=== PATIENT | male | born 1970 | race Caucasian/White ===

== ENCOUNTER 2019-07-12 08:51 | Emergency (ER) | payer MEDICAID ==
--- NOTE | 2019-07-12 09:41 | ER Document Report ---
ED Medical Screen (RME) - General Chief Complaint: Eye Problem Stated Complaint: RIGHT EYE IRRITATION/REDNESS Time Seen by Provider: 07/12/19 09:29 TRAVEL OUTSIDE OF THE [place] IN LAST 30 DAYS: No - HPI Notes: 07/12/19 09:58 49-year-old male to the emergency department with complaints of right eyelid swelling and pain that has been getting progressively worse for the past 3 days. States he was playing with a friend's child the day before his symptoms started and the child was running a track around his eye. He states he woke up the next day with it matted shut with some crusting discharge. He states however it is gotten progressively worse very tender into the tear duct into the upper lid. Denies any fevers or chills. Denies any cysts significant pain with eye movement. He also has a noted elevated blood pressure today. He states that he used to be on 2 medicines but he has not been on them for several months now since he moved to [place]. He cannot recall the names. He denies any focal neurological deficits, vision changes, headache, chest pain, shortness of breath I performed a brief medical screening exam on the patient. Given the swelling on his upper eyelid and into his tear duct questionable if this is progressing into a periorbital cellulitis versus a dacryocystitis. Will evaluate for orbital cellulitis as well by CT and also obtain lab work. Patient agrees with the plan. Patient to be further managed by main side provider. - Related Data Allergies/Adverse Reactions: codeine Allergy (Verified 07/12/19 09:24) Past Medical History - Social History Chew tobacco use (# tins/day): No Frequency of alcohol use: None Drug Abuse: None - Past Medical History Cardiac Medical History: Reports: Hx Hypertension - not on meds Physical Exam - Vital signs Vitals: Temp Pulse Resp BP Pulse Ox 98.7 F 88 16 207/99 H 97 07/12/19 08:56 07/12/19 08:56 07/12/19 08:56 07/12/19 08:56 07/12/19 08:56 Course - Vital Signs Vital signs: Temp Pulse Resp BP Pulse Ox 98.7 F 88 16 207/99 H 97 07/12/19 08:56 07/12/19 08:56 07/12/19 08:56 07/12/19 08:56 07/12/19 08:56
[2019-07-12 10:11] LABS: ABSOLUTE BASOPHILS # (AUTO) 0.1 10^3/uL (0.0-0.2); ABSOLUTE EOSINOPHILS # (AUTO) 0.2 10^3/uL (0.0-0.6); ABSOLUTE LYMPHOCYTES (AUTO) 2.4 10^3/uL (0.5-4.7); ABSOLUTE MONOCYTES (AUTO) 0.5 10^3/uL (0.1-1.4); ABSOLUTE NEUT (AUTO) 5.9 10^3/uL (1.7-8.2); BASOPHILS % (AUTO) 1.2 % (0-2); EOSINOPHILS % (AUTO) 2.2 % (0-6); HEMATOCRIT 45.2 % (37.9-51.0); HEMOGLOBIN 15.7 g/dL (13.5-17.0); LYMPHOCYTES % (AUTO) 25.8 % (13-45); MEAN CORPUSCULAR HEMOGLOBIN 29.2 pg (27.0-33.4); MEAN CORPUSCULAR HGB CONC 34.7 g/dL (32.0-36.0); MEAN CORPUSCULAR VOLUME 84 fl (80-97); MONOCYTES % (AUTO) 5.9 % (3-13); PLATELET COUNT 264 10^3/uL (150-450); RED BLOOD COUNT 5.36 10^6/uL (4.35-5.55); RED CELL DISTRIBUTION WIDTH 14.1 % (11.5-14.0); SEGMENTED NEUTROPHILS % (AUTO) 64.9 % (42-78); TOTAL CELLS COUNTED % (AUTO) 100 %; WHITE BLOOD COUNT 9.2 10^3/uL (4.0-10.5)
[2019-07-12 10:43] LABS: ANION GAP 9 (5-19); BLOOD UREA NITROGEN 11 mg/dL (7-20); CALCIUM 9.2 mg/dL (8.4-10.2); CARBON DIOXIDE 29 mmol/L (22-30); CHLORIDE 102 mmol/L (98-107); GLUCOSE 101 mg/dL (75-110); POTASSIUM 4.4 mmol/L (3.6-5.0)
--- NOTE | 2019-07-12 11:33 | RADIOLOGY REPORT (SQ) ---
EXAM DESCRIPTION: CT ORBIT/SELLA WITH COMPLETED DATE/TIME: 07/12/2019 11:02 am REASON FOR STUDY: eyelid swelling/tear duct eval orbital cellulitis COMPARISON: None. TECHNIQUE: Post contrast images through the orbits windowed for bone and soft tissue. Additional co kristen and sagittal reconstructed images reviewed. All images stored on PACS. All CT scanners at this facility use dose modulation, iterative reconstruction, and/or weight based d osing when appropriate to reduce radiation dose to as low as reasonably achievable (ALARA). [facility]: Dose Right [facility]: CareDose [facility]: Dose Right [facility]: Teradose 4D [facility]: Mixertech CONTRAST TYPE AND DOSE: contrast/concentration: Isovue 350.00 mg/ml; Total Contrast Delivered: 75.0 ml; Total Saline Delivered: 55.0 ml RENAL FUNCTION: GFR > 60. RADIATION DOSE: CT Rad equipment meets quality standard of care and radiation dose reduction techniq ues were employed. CTDIvol: 6.0 mGy. DLP: 93 mGy-cm. . LIMITATIONS: None. FINDINGS: FACIAL BONES: No fracture or bone lesion. ORBITS: Globes intact and symmetric bilaterally. Retro-orbital soft tissues also intact and symmetri c. Pronounced soft tissue swelling extends along the anterior superior aspect of the right orbit, pr eseptal cellulitis. No underlying radiopaque foreign body or abscess formation detected. PARANASAL SINUSES: Clear. No significant mucosal thickening, mass or fluid. SOFT TISSUES: No CT evidence of acute sinusitis. INFERIOR BRAIN: Limited view. No acute findings. OTHER: No other significant finding. IMPRESSION: 1. Right orbital preseptal cellulitis. Otherwise unremarkable CT of the orbits bilaterally. TECHNICAL DOCUMENTATION: JOB ID: [id number] Quality ID # [id number]: Final reports with documentation of one or more dose reduction techniques (e.g., Au tomated exposure control, adjustment of the mA and/or kV according to patient size, use of iterative reconstruction technique) 2010 [employer]- All Rights Reserved Reading location - IP/workstation name: [email or web address]
--- NOTE | 2019-07-12 15:02 | ER Document Report ---
ED Eye Complaint - General Chief Complaint: Eye Problem Stated Complaint: RIGHT EYE IRRITATION/REDNESS Time Seen by Provider: 07/12/19 09:29 Notes: Patient is a 49-year-old male who presents to the emergency department with a chief complaint of right eyelid redness and swelling. Patient reports his symptoms started a few days ago. Patient denies visual drainage or eye drainage. Patient reports occasionally the top of his eyelid which is red will itch. Patient denies fever, nausea, vomiting or diarrhea. Patient reports that he was playing with his friends small daughter the other day when 1 of her toys came in contact with his eyelid. He is unsure if this had bacteria on it or if this was what could be causing his symptoms and possible infection. Patient reports he does have a history of high blood pressure but is not currently take any medications. Patient denies headache or dizziness. TRAVEL OUTSIDE OF THE [place] IN LAST 30 DAYS: No - Related Data Allergies/Adverse Reactions: codeine Allergy (Verified 07/12/19 09:24) Past Medical History - General Information source: Patient - Social History Smoking Status: Current Every Day Smoker Chew tobacco use (# tins/day): No Frequency of alcohol use: None Drug Abuse: None Lives with: Family Family History: None Patient has suicidal ideation: No Patient has homicidal ideation: No - Past Medical History Cardiac Medical History: Reports: Hx Hypertension - not on meds Pulmonary Medical History: Reports: None EENT Medical History: Reports: None Neurological Medical History: Reports: None Endocrine Medical History: Reports: None Renal/ Medical History: Reports: None Malignancy Medical History: Reports None GI Medical History: Reports: None Musculoskeletal Medical History: Reports None Skin Medical History: Reports None Psychiatric Medical History: Reports: None Traumatic Medical History: Reports: None Infectious Medical History: Reports: None Review of Systems - Review of Systems Constitutional: No symptoms reported EENT: See HPI Cardiovascular: No symptoms reported Respiratory: No symptoms reported Gastrointestinal: No symptoms reported Genitourinary: No symptoms reported Male Genitourinary: No symptoms reported Musculoskeletal: No symptoms reported Skin: No symptoms reported Hematologic/Lymphatic: No symptoms reported Neurological/Psychological: No symptoms reported Physical Exam - Vital signs Vitals: Temp Pulse Resp BP Pulse Ox 98.7 F 88 16 207/99 H 97 07/12/19 08:56 07/12/19 08:56 07/12/19 08:56 07/12/19 08:56 07/12/19 08:56 Interpretation: Hypertensive - Notes Notes: GENERAL: Well-appearing, well-nourished and in no acute distress. HEAD: Atraumatic, normocephalic. EYES: Pupils equal round and reactive to light, extraocular movements intact, sclera anicteric, conjunctiva are normal. Patient does have erythema and mild swelling to right upper eyelid, eyelids are not swollen shut. The swelling and erythema do not extend into the cheek or forehead. This is localized to the right upper eyelid. No injection noted to eye, no drainage. ENT: Nares patent, oropharynx clear without exudates. Moist mucous membranes. NECK: Normal range of motion, supple without lymphadenopathy or JVD. LUNGS: Breath sounds clear to auscultation bilaterally and equal. No wheezes rales or rhonchi. HEART: Regular rate and rhythm without murmurs, rubs or gallops. ABDOMEN: Soft, nontender, normoactive bowel sounds. No guarding, no rebound. No masses appreciated. BACK: No cervical, thoracic, lumbar midline tenderness. No saddle anesthesia, normal distal neurovascular exam. GENITOURINARY: Deferred. EXTREMITIES: Normal range of motion, no pitting or edema. No clubbing or cyanosis. NEUROLOGICAL: Cranial nerves II through XII grossly intact. Normal speech, normal gait. PSYCH: Normal mood, normal affect. SKIN: Warm, Dry, normal turgor, no rashes or lesions noted. - HEENT Visual acuity- Right eye: 20/30-1 Visual acuity- Left eye: 20/30-0 Visual acuity- Both eyes: 20/30-0 Corrective lenses worn: No Course - Re-evaluation Re-evalutation: 07/12/[address] Ramos in regards to the patient's blood work and CT scan which did show preseptal orbital cellulitis without abscess. He does recommend the patient receiving IV Rocephin and IV vancomycin prior to discharge and placing the patient on Septra 2 tabs twice daily for 7 days, and to return to the emergency department tomorrow for reevaluation as his symptoms and diagnosis are serious and could get worse. Patient is sitting upright on chair and is visibly upset. Patient voiced concerned about significant wait time and states he cannot stay for IV antibiotics as he needs to pick his child up from school. Patient remains afebrile but does remain hypertensive. I did inform him that we would like to keep him to help bring down his blood pressure and to receive IV antibiotics. Patient states he cannot receive the IV antibiotics but will return tomorrow for reevaluation. I did inform the patient that without IV antibiotics the infection could potentially get worse to include infection that spreads into the eye, the blood, the brain and result in . Patient did sign a refusal of treatment for his IV antibiotics. I did reiterate the importance to return tomorrow for reevaluation. Patient was given first dose of Bactrim here in the emergency department and was prescribed oral antibiotics for 1 week as recommended by my attending MD. - Vital Signs Vital signs: Temp Pulse Resp BP Pulse Ox 98.2 F 80 20 207/107 H 96 07/12/19 15:21 07/12/19 15:21 07/12/19 15:21 07/12/19 15:21 07/12/19 15:21 - Laboratory Result Diagrams: 07/12/19 09:50 07/12/19 09:50 Laboratory results interpreted by me: 07/12/19 09:50 RDW 14.1 H - Diagnostic Test Radiology reviewed: Reports reviewed Radiology results interpreted by me: 07/12/19 15:[address] 07/12/19 09:39 IMPRESSION: 1. Right orbital preseptal cellulitis. Otherwise unremarkable CT of the orbits bilaterally. Discharge - Discharge Clinical Impression: Preseptal cellulitis of right upper eyelid Condition: Stable Disposition: HOME, SELF-CARE Additional Instructions: *Today you were seen in the emergency department for right eye redness. We did obtain a CAT scan which did show a preseptal cellulitis of the orbit around the eye. This is a very serious type of cellulitis. If not treated appropriately this could potentially get into your brain and you could . This could also spread to your blood or effect your eye. At this time your blood work was reassuring and did not show signs of infection. We did recommend a dose of IV antibiotics prior to discharge but unfortunately you had to leave. I will place you on oral antibiotics and given your first dose here in the emergency department. We would like you to return tomorrow for a reevaluation of your right eye infection. *It extremely important to have a follow-up and to return tomorrow. Throughout the night if you develop any visual changes, increased swelling around the eye, increased swelling to the face and redness, fever please return to the emergency department as this can infection can get worse rapidly. *Use warm compresses to the right eye, and anti-inflammatories such as ibuprofen. You may also take Tylenol. *PLEASE RETURN TO THE ER TOMORROW FOR A RE-EVALUATION. Cellulitis You have an infection of your skin and underlying soft tissues called cellulitis. This is due to bacteria, which can enter through any break in the skin, or even through an irritated hair follicle. Untreated, cellulitis will usually worsen. Antibiotics are required. Usually, warm packs or warm soaks, and elevation of the infected area are recommended. You should start getting better within 24 to 36 hours. Most infections respond quickly to the right medication. Follow-up care is important, however, to check for abscess (boil) formation, unsuspected foreign body, or resistant infection. If you develop fever, chills, or if the area of infection is becoming rapi dly more swollen or painful, call the doctor at once. Prescriptions: Sulfamethoxazole/Trimethoprim [Septra-Ds 800-160 mg Tablet] 2 tab PO BID 7 Days #28 tablet Forms: Return to Work
[2019-07-12] MEDS ORDERED: SULFAMETHOXAZOLE/TRIMETHOPRIM 800-160 MG TABLET PO ONE (15:14)
[2019-07-12 15:29] VITALS: BP 207/107
== END 2019-07-12 15:29 | disposition home or self-care (01) ==
LOC: ER 08:51
DX: L03.213 Periorbital cellulitis (principal); H57.9 Unspecified disorder of eye and adnexa; F17.200 Nicotine dependence, unspecified, uncomplicated; Z88.6 Allergy status to analgesic agent
CPT/HCPCS: 36415; 85025; 80048; 70481; J3490

== ENCOUNTER 2019-07-13 12:18 | Emergency (ER) | payer MEDICAID ==
[2019-07-13] MEDS ORDERED: VANCOMYCIN HCL INJ 1000 MG VIAL IV ONE (13:47)
--- NOTE | 2019-07-13 13:53 | ER Document Report ---
ED Blood Pressure Problem - General Chief Complaint: High Blood Pressure Stated Complaint: BLOOD PRESSURE ISSUE Time Seen by Provider: 07/13/19 13:35 Primary Care Provider: GRACIELA VALLE MD [ACTIVE STAFF] - Follow up as needed SOFI SOTO MD [ACTIVE STAFF] - Follow up as needed LAZARO BANUELOS MD [ACTIVE STAFF] - Follow up as needed Notes: Patient is a 49-year-old male with a history of hypertension who presents to the emergency department with high blood pressure. Patient was seen here yesterday and diagnosed with preseptal orbital cellulitis and states that he was also noted to have an elevated blood pressure. Patient states he returns to have his blood pressure acknowledged and treated as well as to receive IV antibiotics that were recommended that he receive yesterday. Patient reports he has been taking the Bactrim as prescribed. Patient denies any increased swelling, redness or facial swelling. Patient denies visual changes. TRAVEL OUTSIDE OF THE [place] IN LAST 30 DAYS: No - Related Data Allergies/Adverse Reactions: codeine Allergy (Verified 07/13/19 13:34) Past Medical History - General Information source: Patient - Social History Smoking Status: Current Every Day Smoker Frequency of alcohol use: None Drug Abuse: None Lives with: Family Family History: None Patient has suicidal ideation: No Patient has homicidal ideation: No - Past Medical History Cardiac Medical History: Reports: Hx Hypertension - not on meds Pulmonary Medical History: Reports: None EENT Medical History: Reports: None Neurological Medical History: Reports: None Endocrine Medical History: Reports: None Renal/ Medical History: Reports: None Malignancy Medical History: Reports None GI Medical History: Reports: None Musculoskeletal Medical History: Reports None Skin Medical History: Reports None Psychiatric Medical History: Reports: None Traumatic Medical History: Reports: None Infectious Medical History: Reports: None Surgical Hx: Negative Review of Systems - Review of Systems Constitutional: No symptoms reported EENT: See HPI Cardiovascular: No symptoms reported Respiratory: No symptoms reported Gastrointestinal: No symptoms reported Genitourinary: No symptoms reported Male Genitourinary: No symptoms reported Musculoskeletal: No symptoms reported Skin: No symptoms reported Hematologic/Lymphatic: No symptoms reported Neurological/Psychological: No symptoms reported Physical Exam - Vital signs Vitals: Temp Pulse Resp BP Pulse Ox 98.1 F 93 16 183/91 H 96 07/13/19 13:32 07/13/19 13:32 07/13/19 13:32 07/13/19 13:32 07/13/19 13:32 Interpretation: Hypertensive - Notes Notes: GENERAL: Well-appearing, well-nourished and in no acute distress. HEAD: Atraumatic, normocephalic. EYES: Pupils equal round and reactive to light, extraocular movements intact, sclera anicteric, conjunctiva are normal. Erythema and slightly edema noted to the top right eyelid. The erythema does not extend into the cheek or forehead. ENT: TMs normal, nares patent, oropharynx clear without exudates. Moist mucous membranes. NECK: Normal range of motion, supple without lymphadenopathy or JVD. LUNGS: Breath sounds clear to auscultation bilaterally and equal. No wheezes rales or rhonchi. HEART: Regular rate and rhythm without murmurs, rubs or gallops. ABDOMEN: Soft, nontender, normoactive bowel sounds. No guarding, no rebound. No masses appreciated. BACK: No cervical, thoracic, lumbar midline tenderness. No saddle anesthesia, normal distal neurovascular exam. GENITOURINARY: Deferred. EXTREMITIES: Normal range of motion, no pitting or edema. No clubbing or cyanosis. NEUROLOGICAL: Cranial nerves II through XII grossly intact. Normal speech, normal gait. PSYCH: Normal mood, normal affect. SKIN: Warm, Dry, normal turgor, no rashes or lesions noted. Course - Re-evaluation Re-evalutation: 07/13/19 13:51 We will give the patient his dose of antibiotics that were recommended that he received yesterday when I did speak with my attending. We will give him a loading dose of vancomycin as well as Rocephin per the recommendations of Dr. Ramos. Patient cellulitis around his eye appears to be the same and may be slightly better. This does not look worse. I was the provider that saw him yesterday. Patient is hypertensive. Patient reports he was prescribed to antihypertensive medications but did stop this back in February as he moved and has not found a primary care physician in the area. Patient reports he does have Medicaid and is attempting to find a primary. Patient is currently asymptomatic without fever, headache, dizziness or any symptoms of high blood pressure. Patient is in agreement with plan to receive IV antibiotics. 07/13/19 13:56 I was able to pull up the patient's prescriptions. It does appear he was on amlodipine 10 mg daily and lisinopril 10 mg daily. I will give patient a 30-day supply with 1 refill. I did inform the patient that is it extremely important to establish a primary care physician here in the area. I will give him some recommendations on his discharge instructions. Ultimately his primary care physician will have to refill his medications. Patient reports he did tolerate both these blood pressure pills without side effects. 07/13/19 16:57 Patient did receive IV antibiotics without any reaction. I did inform him to continue taking the Bactrim as prescribed. Patient is nontoxic-appearing in no acute distress. Patient remains hypertensive. Patient does not headache, dizziness. I did refill his prescriptions for 30 days with 1 refill. I did give him multiple referrals to primary care physician so he is able to follow- up. Patient verbalizes understanding was given strict return precautions in regards to his cellulitis. Patient is not febrile or tachycardic, hypotensive at time of discharge. - Vital Signs Vital signs: Temp Pulse Resp BP Pulse Ox 98.4 F 74 16 196/91 H 96 07/13/19 16:48 07/13/19 16:48 07/13/19 16:48 07/13/19 16:48 07/13/19 16:48 Discharge - Discharge Clinical Impression: Preseptal cellulitis of right upper eyelid Hypertension Qualifiers: Hypertension type: essential hypertension Qualified Code(s): I10 - Essential (primary) hypertension Condition: Stable Disposition: HOME, SELF-CARE Additional Instructions: *Today you are seen in the emergency department to receive IV antibiotics as well as to be evaluated for your high blood pressure. I will prescribe you a 1 month dose of your antihypertension medication with 1 refill. Please follow-up with a primary care physician. I will provide you with multiple referrals. Continue taking the Bactrim which is your oral antibiotic that was prescribed yesterday. Take this for its full course even if you start to feel better. Please monitor for worsening signs and symptoms of your cellulitis to include increased redness, changes in your vision, facial swelling, fever, or any new or worsening symptoms. Cellulitis You have an infection of your skin and underlying soft tissues called cellulitis. This is due to bacteria, which can enter through any break in the skin, or even through an irritated hair follicle. Untreated, cellulitis will usually worsen. Antibiotics are required. Usually, warm packs or warm soaks, and elevation of the infected area are recommended. You should start getting better within 24 to 36 hours. Most infections respond quickly to the right medication. Follow-up care is important, however, to check for abscess (boil) formation, unsuspected foreign body, or resistant infection. If you develop fever, chills, or if the area of infection is becoming rapidly more swollen or painful, call the doctor at once. HIGH BLOOD PRESSURE, NOT TREAT: When your blood pressure was taken today it was elevated. Today's reading was _183/91_. Some simple things you can do to help are: If you have blood pressure medicine but aren't using it regularly, start taking it again. Get some aerobic exercise for at least 20 minutes on a daily basis. (See your doctor before beginning a new exercise program.) Eat a low-fat diet. Lose excess weight. Avoid salty foods and avoid adding salt to any of the foods you eat. Avoid diet pills, decongestants, "energizing" herbs, and other medicines that elevate blood pressure. If left untreated, hypertension greatly enhances your risk for developing heart disease and strokes. Please don't ignore this problem. FOLLOW-UP CARE: If you have been referred to a physician for follow-up care, call the physicia office for an appointment as you were instructed or within the next two days. If you experience worsening or a significant change in your symptoms, notify the physician immediately or return to the Emergency Department at any time for re-evaluation. Prescriptions: Amlodipine Besylate [Norvasc 10 mg Tablet] 10 mg PO DAILY #30 tablet Lisinopril [Prinivil 10 mg Tablet] 10 mg PO DAILY #30 tablet Forms: Return to Work Referrals: GRACIELA VALLE MD [ACTIVE STAFF] - Follow up as needed SOFI SOTO MD [ACTIVE STAFF] - Follow up as needed LAZARO BANUELOS MD [ACTIVE STAFF] - Follow up as needed
[2019-07-13] MEDS ORDERED: CEFTRIAXONE 1 GM/D5W RTU 1 GM/50 ML RTUPB IV ONE (14:30)
[2019-07-13 16:53] VITALS: BP 196/91
== END 2019-07-13 17:02 | disposition home or self-care (01) ==
LOC: ER 12:18
DX: I10 Essential (primary) hypertension (principal); L03.213 Periorbital cellulitis; F17.200 Nicotine dependence, unspecified, uncomplicated; Z88.6 Allergy status to analgesic agent; Z88.5 Allergy status to narcotic agent
CPT/HCPCS: 99283; 96365; 96366; 96367; J3370; J0696

== ENCOUNTER 2019-11-27 08:28 | Emergency (ER) | payer SELFPAY ==
[2019-11-27] MEDS ORDERED: HYDRALAZINE HCL INJ/PF 20 MG/1 ML SDV IV ONE (09:19)
--- NOTE | 2019-11-27 09:21 | ER Document Report ---
ED General - General Chief Complaint: High Blood Pressure Stated Complaint: BLOOD PRESSURE ISSURE Time Seen by Provider: 11/27/19 09:09 Primary Care Provider: VISH VALDIVIA MD [ACTIVE STAFF] - Follow up as needed LAZARO BANUELOS MD [ACTIVE STAFF] - Follow up as needed Mode of Arrival: Ambulatory Information source: Patient TRAVEL OUTSIDE OF THE [place] IN LAST 30 DAYS: No - HPI Notes: 49-year-old male with a history of hypertension presents to the emergency room for evaluation of dizziness and lightheadedness that he experienced last night as well as substernal chest pain that he experienced 1 day ago at work, states lasted for 10 minutes while he was driving. patient states that he drank some water and the pain went away. No radiation to arm or jaw. Patient does not take a baby aspirin. Patient is not having active chest pain at this time. eating and drinking without any issues. Reports father had a history of hyp ertension, no history of MS or cardiac disease. Patient states states that he ran out of his blood pressure medication and he would like it to be refilled and this is the main reason why he came to the emergency room. Patient does smoke a pack a day for the last 20+ years. 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 has not made an appointment with his primary care provider because he states he does not have insurance. Denies fevers, chills,palpitations, shortness of breath, dyspnea, nausea, vomiting, diarrhea, abdominal pain, hematuria,blurred vision, double vision, loss of vision, speech changes, LH, dizziness, syncope, headaches, wheezing, ST, URI, neck pain, weakness, bowel or bladder dysfunction, saddle anesthesia, numbness or tingling in bilateral upper or lower extremities equally, muscle paralysis, weakness in bilateral upper or lower extremities equally or rash. Denies IV drug use. - Related Data Allergies/Adverse Reactions: codeine Allergy (Verified 07/13/19 13:34) Past Medical History - General Information source: Patient - Social History Smoking Status: Current Every Day Smoker Frequency of alcohol use: None Drug Abuse: None Family History: None Patient has homicidal ideation: No - Past Medical History Cardiac Medical History: Reports: Hx Hypertension - not on meds Review of Systems - Review of Systems Constitutional: No symptoms reported EENT: No symptoms reported Cardiovascular: See HPI Respiratory: No symptoms reported Gastrointestinal: No symptoms reported Genitourinary: No symptoms reported Male Genitourinary: No symptoms reported Musculoskeletal: No symptoms reported Skin: No symptoms reported Hematologic/Lymphatic: No symptoms reported Neurological/Psychological: No symptoms reported Physical Exam - Vital signs Vitals: Temp Pulse Resp BP Pulse Ox 98.6 F 130 H 18 205/126 H 97 11/27/19 08:32 11/27/19 08:32 11/27/19 08:32 11/27/19 08:32 11/27/19 08:32 - Notes Notes: MEDICATIONS: I agree with the patient medications as charted by the RN. ALLERGIES: I agree with the allergies as charted by the RN. PAST MEDICAL HISTORY/PAST SURGICAL HISTORY: Reviewed and agree as charted by RN. SOCIAL HISTORY: Reviewed and agree as charted by RN. FAMILY HISTORY: No significant familial comorbid conditions directly related to patient complaint EXAM: Reviewed vital signs as charted by RN. PHYSICAL EXAMINATION:reviewed vital signs by RN GENERAL: Well-appearing, well-nourished and in no acute distress. HEAD: Atraumatic, normocephalic. EYES: Pupils equal round and reactive to light, extraocular movements intact, sclera anicteric, conjunctiva are normal. ENT: Nares patent, oropharynx clear without exudates. Moist mucous membranes. NECK: Normal range of motion, supple without lymphadenopathy LUNGS: Breath sounds clear to auscultation bilaterally and equal. No wheezes rales or rhonchi. HEART: Regular rate and rhythm without murmurs ABDOMEN: Soft, nontender, nondistended abdomen. No guarding, no rebound. No masses appreciated. Musculoskeletal: Normal range of motion, no pitting or edema. No cyanosis. NEUROLOGICAL: Cranial nerves grossly intact. Normal speech, normal gait. Normal sensory, motor exams PSYCH: Normal mood, normal affect. SKIN: Warm, Dry, normal turgor, no rashes or lesions noted. Course - Re-evaluation Re-evalutation: 11/27/19 17:42 AFebrile vital stable no distress. Nurses notes reviewed. CBC negative for leukocytosis or anemia, CMP negative for hepatic or renal dysfunction, no electrolyte disturbances. EKG negative for STEMI, no ST segment changes, chest x-ray unremarkable. Urinalysis negative for leukoesterase. Patient given 10 mg IV of hydralazine which did bring his blood pressure down. 2 sets of troponins 4 hours apart were negative. Patient denies any chest pain, states he is feeling much better. Patient mostly stated he wanted to get blood pressure medication for outpatient therapy. Discussed with patient that I would be able to prescribe him 1 months of amlodipine and lisinopril and that he does need to follow-up with his primary care provider as well as her socially responsible investment adviser for further outpatient cardiac care such as getting an echocardiogram possibly getting a stress test. Patient's heart score is 3, history is only slightly suspicious, EKG was normal, his age is over 45, risk factors being that he is a current smoker, BMI is over 30, history of hypertension. After performing a Medical Screening Examination, I estimate there is LOW risk for RUPTURED ESOPHAGUS, PNEUMOTHORAX, PULMONARY EMBOLISM, ACUTE CORONARY SYNDROME, OR THORACIC AORTIC D ISSECTION, thus I consider the discharge disposition reasonable. I have reevaluated this patient multiple times and no significant life threatening changes are noted. The patient and I have discussed the diagnosis and risks, and we agree with discharging home with close follow-up. We also discussed returning to the Emergency Department immediately if new or worsening symptoms occur. We have discussed the symptoms which are most concerning (e.g., bloody sputum, worsening pain or shortness of breath) that necessitate immediate return. - Vital Signs Vital signs: Temp Pulse Resp BP Pulse Ox 98.6 F 80 14 180/114 H 100 11/27/19 09:10 11/27/19 10:07 11/27/19 10:01 11/27/19 13:01 11/27/19 13:01 - Laboratory Result Diagrams: 11/27/19 09:30 11/27/19 09:30 Laboratory results interpreted by me: 11/27/19 09:30 RBC 5.60 H Discharge - Discharge Clinical Impression: Hypertension, Chest pain Condition: Stable Disposition: HOME, SELF-CARE Instructions: Angiotensin Converting Enzyme Inhibitor Medication ([facility]), Chest Pain of Unclear Cause ([facility]), High Blood Pressure ([facility]), High Blood Pressure, Requiring Treatment ([facility]) Additional Instructions: All of your labs today were normal. Your CT was normal. Your EKG as well as your chest x-ray. Please take blood pressure medications as directed, decrease salt intake, moderate exercise and please quit smoking. Please follow-up with socially responsible investment adviser and primary care provider over the next 24 to 48 hours. Return immediately for any new or worsening symptoms. Follow up with primary care provider, call tomorrow to make followup appoi ntment. Prescriptions: Amlodipine Besylate [Norvasc 10 mg Tablet] 10 mg PO DAILY #30 tablet Lisinopril [Prinivil] 10 mg PO DAILY #30 tablet Forms: Return to Work, Smoking Cessation Education Referrals: LAZARO BANUELOS MD [ACTIVE STAFF] - Follow up in 3-5 days VISH VALDIVIA MD [ACTIVE STAFF] - Follow up in 3-5 days
[2019-11-27 09:51] LABS: APPEARANCE,URINE CLEAR; BILIRUBIN,URINE NEGATIVE (NEGATIVE); COLOR,URINE YELLOW; GLUCOSE, URINE NEGATIVE (NEGATIVE); KETONES,URINE NEGATIVE (NEGATIVE); LEUKOCYTE ESTERASE,URINE NEGATIVE (NEGATIVE); NITRITE,URINE NEGATIVE (NEGATIVE); PROTEIN,URINE NEGATIVE (NEGATIVE); URINE SPECIFIC GRAVITY 1.017; UROBILINOGEN,URINE NEGATIVE mg/dL (<2.0)
[2019-11-27 09:53] LABS: ABSOLUTE BASOPHILS # (AUTO) 0.1 10^3/uL (0.0-0.2); ABSOLUTE EOSINOPHILS # (AUTO) 0.1 10^3/uL (0.0-0.6); ABSOLUTE LYMPHOCYTES (AUTO) 2.5 10^3/uL (0.5-4.7); ABSOLUTE MONOCYTES (AUTO) 0.6 10^3/uL (0.1-1.4); BASOPHILS % (AUTO) 0.8 % (0-2); EOSINOPHILS % (AUTO) 1.4 % (0-6); HEMATOCRIT 47.7 % (37.9-51.0); HEMOGLOBIN 16.8 g/dL (13.5-17.0); LYMPHOCYTES % (AUTO) 26.4 % (13-45); MEAN CORPUSCULAR HGB CONC 35.2 g/dL (32.0-36.0); MEAN CORPUSCULAR VOLUME 85 fl (80-97); MONOCYTES % (AUTO) 6.9 % (3-13); PLATELET COUNT 268 10^3/uL (150-450); RED CELL DISTRIBUTION WIDTH 13.8 % (11.5-14.0); SEGMENTED NEUTROPHILS % (AUTO) 64.5 % (42-78); TOTAL CELLS COUNTED % (AUTO) 100 %; WHITE BLOOD COUNT 9.4 10^3/uL (4.0-10.5)
[2019-11-27 10:06] LABS: ALBUMIN 4.8 g/dL (3.5-5.0); ALKALINE PHOSPHATASE 78 U/L (38-126); ANION GAP 7 (5-19); ASPARTATE AMINO TRANSFERASE 29 U/L (17-59); BILIRUBIN,TOTAL 0.5 mg/dL (0.2-1.3); BLOOD UREA NITROGEN 12 mg/dL (7-20); CALCIUM 9.7 mg/dL (8.4-10.2); CARBON DIOXIDE 27 mmol/L (22-30); CHLORIDE 104 mmol/L (98-107); GLUCOSE 107 mg/dL (75-110); TOTAL PROTEIN 7.7 g/dL (6.3-8.2)
[2019-11-27 10:18] LABS: NT PRO BNP 70 pg/mL (<125)
[2019-11-27 10:20] LABS: TROPONIN I < 0.012 ng/mL
--- NOTE | 2019-11-27 10:48 | RADIOLOGY REPORT (SQ) ---
EXAM DESCRIPTION: CHEST SINGLE VIEW IMAGES COMPLETED DATE/TIME: 11/27/2019 10:14 am REASON FOR STUDY: chest pain/dizzy COMPARISON: None. EXAM PARAMETERS: NUMBER OF VIEWS: One view. TECHNIQUE: Single frontal radiographic view of the chest acquired. RADIATION DOSE: NA LIMITATIONS: None. FINDINGS: LUNGS AND PLEURA: No opacities, masses or pneumothorax. No pleural effusion. MEDIASTINUM AND HILAR STRUCTURES: No masses. Contour normal. HEART AND VASCULAR STRUCTURES: Heart normal in size. Normal vasculature. BONES: No acute findings. HARDWARE: None in the chest. OTHER: No other significant finding. IMPRESSION: NO ACUTE RADIOGRAPHIC FINDING IN THE CHEST. TECHNICAL DOCUMENTATION: JOB ID: [id number] 2010 [email or web address]- All Rights Reserved Reading location - IP/workstation name: [email or web address]
--- NOTE | 2019-11-27 10:50 | RADIOLOGY REPORT (SQ) ---
EXAM DESCRIPTION: CT HEAD WITHOUT IMAGES COMPLETED DATE/TIME: 11/27/2019 10:23 am REASON FOR STUDY: chest pain/dizzy COMPARISON: None. TECHNIQUE: Axial images acquired through the brain without intravenous contrast. Images reviewed wi th bone, brain and subdural windows. Additional sagittal and coronal reconstructions were generated. Images stored on PACS. All CT scanners at this facility use dose modulation, iterative reconstruction, and/or weight based d osing when appropriate to reduce radiation dose to as low as reasonably achievable (ALARA). [facility]: Dose Right [facility]: CareDose [facility]: Dose Right [facility]: Teradose 4D [facility]: EthicsGame RADIATION DOSE: CT Rad equipment meets quality standard of care and radiation dose reduction techniq ues were employed. CTDIvol: 53.2 mGy. DLP: 1070 mGy-cm. mGy. LIMITATIONS: None. FINDINGS: VENTRICLES: Normal size and contour. CEREBRUM: No masses. No hemorrhage. No midline shift. No evidence for acute infarction. Normal gra y/white matter differentiation. No areas of low density in the white matter. CEREBELLUM: No masses. No hemorrhage. No alteration of density. No evidence for acute infarction. EXTRAAXIAL SPACES: No fluid collections. No masses. ORBITS AND GLOBE: No intra- or extraconal masses. Normal contour of globe without masses. CALVARIUM: No fracture. PARANASAL SINUSES: No fluid or mucosal thickening. SOFT TISSUES: No mass or hematoma. OTHER: No other significant finding. IMPRESSION: NORMAL BRAIN CT WITHOUT CONTRAST. EVIDENCE OF ACUTE STROKE: NO. COMMENT: Quality ID # [id number]: Final reports with documentation of one or more dose reduction techniques (e.g., Automated exposure control, adjustment of the mA and/or kV according to patient size, use of iterative reconstruction technique) TECHNICAL DOCUMENTATION: JOB ID: [id number] 2010 [email or web address]- All Rights Reserved Reading location - IP/workstation name: [email or web address]
--- NOTE | 2019-11-27 12:51 | EKG REPORT ---
SEVERITY:- ABNORMAL ECG - SINUS RHYTHM LEFT ATRIAL ABNORMALITY : Confirmed by: Pardeep Alvares MD 27-Nov-2019 12:50:51
[2019-11-27 13:13] VITALS: BP 180/114
== END 2019-11-27 13:19 | disposition home or self-care (01) ==
LOC: ER 08:28
DX: I10 Essential (primary) hypertension (principal); R07.2 Precordial pain; R42 Dizziness and giddiness; F17.200 Nicotine dependence, unspecified, uncomplicated; Z63.0 Problems in relationship with spouse or partner
CPT/HCPCS: 93005; 99285; 36415; 84443; 85025; 80053; 81001; 84484; 83880; 71045; 70450; 93010; J0360

== ENCOUNTER 2019-12-02 18:39 | Emergency (ER) | payer SELFPAY ==
--- NOTE | 2019-12-02 18:51 | ER Document Report ---
ED Medical Screen (RME) - General Chief Complaint: Leg Pain Stated Complaint: LEG PAIN Time Seen by Provider: 12/02/19 18:46 Mode of Arrival: Ambulatory Information source: Patient Notes: HPI; 9-year-old male presents to the emergency room complaining of worsening right calf pain x4 days. States he was walking when he "felt a pop" states is been taking Aleve with some relief. Is now noticing bruising to his right medial foot. Denies any trauma or injury to his foot. No history of previous DVTs. Ambulatory without difficulty PE: Alert and oriented x3. Mild distress noted. Tenderness on palpation to the right calf. Positive right pedal pulse. Trace pedal edema. I have greeted and performed a rapid initial assessment of this patient. A comprehensive ED assessment and evaluation of the patient, analysis of test results and completion of the medical decision making process will be conducted by additional ED providers. I have specifically instructed the patient or family members with the patient to immediately return to any nursing staff should anything change in the patient's condition or with their chief complaint. TRAVEL OUTSIDE OF THE [place] IN LAST 30 DAYS: No - Related Data Allergies/Adverse Reactions: codeine Allergy (Verified 12/02/19 18:45) Home Medications: bp medications Past Medical History - Social History Chew tobacco use (# tins/day): No Frequency of alcohol use: None Drug Abuse: None - Past Medical History Cardiac Medical History: Reports: Hx Hypertension - not on meds Past Surgical History: Reports: Hx Appendectomy Physical Exam - Vital signs Vitals: Temp 99.1 F 12/02/19 18:45 Course - Vital Signs Vital signs: Temp Pulse Resp BP Pulse Ox 99.1 F 12/02/19 18:45
--- NOTE | 2019-12-02 21:36 | ER Document Report ---
HPI - HPI Time Seen by Provider: 12/02/19 18:46 Pain Level: 3 Context: Patient is a 49-year-old male that comes to the emergency department for chief complaint of pain and swelling to his right calf and right leg. He states that about 4 days ago he got up quickly to cross the room when he felt a sudden pop and pain in his right calf. He states since then he has had swelling and he is also starting to notice discoloration/bruising to his right medial foot/ankle. He denies trauma, he is still able to ambulate on the leg but with some discomfort and limping. He denies fever/chills, he denies history of DVT, recent travel or surgery. He is not on a blood thinner. He has been taking Aleve and this does help his symptoms somewhat. - REPRODUCTIVE Reproductive: DENIES: : - MUSCULOSKELETAL Musculoskeletal: REPORTS: Extremity pain - rle Past Medical History - General Information source: Patient - Social History Smoking Status: Current Every Day Smoker Chew tobacco use (# tins/day): No Frequency of alcohol use: None Drug Abuse: None Family History: None Patient has homicidal ideation: No - Past Medical History Cardiac Medical History: Reports: Hx Hypertension - not on meds Past Surgical History: Reports: Hx Appendectomy Vertical Provider Document - CONSTITUTIONAL General Appearance: WD/WN, No Apparent Distress - INFECTION CONTROL TRAVEL OUTSIDE OF THE [place] IN LAST 30 DAYS: No - HEENT HEENT: Atraumatic, Normocephalic - NECK Neck: Normal Inspection - RESPIRATORY Respiratory: Breath Sounds Normal, No Respiratory Distress - CARDIOVASCULAR Cardiovascular: Regular Rate, Regular Rhythm, No Murmur, Tachycardia - Borderline tachycardia - GI/ABDOMEN Gastrointestinal: Abdomen Soft, Abdomen Non-Tender. negative: Abdomen Tender - BACK Back: Normal Inspection - MUSCULOSKELETAL/EXTREMETIES Musculoskeletal/Extremeties: MAEW, FROM, Tender - Tenderness at the top of the right calf with some mild soft tissue swelling below this extending down to the ankle. Developing ecchymosis at the medial ankle as well. Normal cap refill and sensation, normal dorsalis pedis, no significant erythema, no significant tenderness, no induration or fluctuance. Unremarkable otherwise. - NEURO Level of Consciousness: Awake, Alert, Appropriate - DERM Integumentary: Warm, Dry, No Rash Course - Re-evaluation Re-evalutation: Patient has tenderness over the right calf with some soft tissue swelling below this and developing ecchymosis at the medial ankle on the same leg. Preliminary results from the venous Doppler ultrasound are negative. Pulses normal, no erythema, severe swelling, pain out of proportion, or signs of compartment syndrome. No signs of infection on my exam. I suspect this is gastrocnemius tear, patient provided with crutches, gentle wrap on request, work release, instructions, orthopedic follow-up. Patient states appreciation and agreement. Patient is notably hypertensive and also tachycardic on his evaluation here initially, however he is only borderline tachycardic on my exam, blood pressure is significantly improved, patient declines additional evaluation for this, he states he was just evaluated here for his blood pressure over the past couple of days with a negative work-up and he is prescribed medications for this which she will be taking. He has no chest pain, headache, or any shortness of breath. Patient will follow-up with primary care. Patient stable and well-appearing at time of discharge. - Vital Signs Vital signs: Temp Pulse Resp BP Pulse Ox 99.1 F 12/02/19 18:45 Procedures - Immobilization right leg Pre-Proc Neuro Vasc Exam: Normal Immobilizer type: Jimbo wrap Performed by: PCT Post-Proc Neuro Vasc Exam: Normal Alignment checked and good: Yes Discharge - Discharge Clinical Impression: Right calf pain, Right leg swelling Condition: Stable Disposition: HOME, SELF-CARE Additional Instructions: No blood clot is seen in your leg. Your evaluation is consistent with a gastrocnemius injury (injury of part of the top of the calf muscle and connective tissue). Your exam indicates bleeding from this injury causing swelling. I recommend that you elevate your leg as much as possible, ice the area 3-4 times a day for 10 to 15 minutes, you can use the compression and crutches for the next several days as well. Continue the anti-inflammatory as prescribed. Most of the time this heals and resolves. If symptoms continue follow-up with the orthopedics referral for additional management. Return if you worsen including severe worsening swelling or pain, developing or spreading redness, fever, or any other concerning or worsening symptoms. Prescriptions: Naproxen 500 mg PO BID PRN #14 tablet PRN Reason: Forms: Return to Work Referrals: DAMON SCHWAB JR, [ACTIVE PROVISIONAL STAFF] - Follow up in 1 week
[2019-12-02 22:37] VITALS: BP 165/128
--- NOTE | 2019-12-03 00:04 | RADIOLOGY REPORT (SQ) ---
EXAM DESCRIPTION: US EXTREMITY VEINS UNILATERAL COMPLETED DATE/TME: 12/02/2019 18:49 CLINICAL HISTORY: 49 years Male, right calf pain Comparison: None. LIMITATIONS: None. FINDINGS: Color doppler sonogram and compression maneuvers throughout the deep venous system of the right lower extremity show no evidence of thrombus including evaluation of the common femoral vein, superficial femoral vein, popliteal vein, posterior tibial vein, and peroneal vein. No deep venous thrombosis of the contralateral left common femoral vein. IMPRESSION: No DVT of the right lower extremity .
== END 2019-12-02 22:20 | disposition home or self-care (01) ==
LOC: ER 18:39
DX: M79.604 Pain in right leg (principal); M79.89 Other specified soft tissue disorders; F17.200 Nicotine dependence, unspecified, uncomplicated; I10 Essential (primary) hypertension
CPT/HCPCS: 93971; 99283

== ENCOUNTER 2019-12-10 12:46 | Emergency (ER) | payer SELFPAY ==
[2019-12-10] MEDS ORDERED: NORMAL SALINE 1000 ML 1,000 ML IV ONE (14:20)
--- NOTE | 2019-12-10 14:22 | ER Document Report ---
ED Medical Screen (RME) - General Chief Complaint: Leg Pain Stated Complaint: LEG PAIN Time Seen by Provider: 12/10/19 14:05 Mode of Arrival: Ambulatory Information source: Patient Notes: Patient presents requesting a light duty note for his employer. Patiently initially had a heart rate in the 130s, patient presently in heart rate in the 120s at this time. Patient states that he has had occasional chest pain although none at this time. Patient denies any nausea or vomiting. I have greeted and performed a rapid initial assessment of this patient. A comprehensive ED assessment and evaluation of the patient, analysis of test results and completion of the medical decision making process will be conducted by additional ED providers. TRAVEL OUTSIDE OF THE [place] IN LAST 30 DAYS: No - Related Data Allergies/Adverse Reactions: codeine Allergy (Verified 12/02/19 18:45) Home Medications: amlodipine, lisinopril Past Medical History - Social History Chew tobacco use (# tins/day): No Frequency of alcohol use: None Drug Abuse: None - Past Medical History Cardiac Medical History: Reports: Hx Hypertension - not on meds Past Surgical History: Reports: Hx Appendectomy Physical Exam - Vital signs Vitals: Temp Pulse Resp BP Pulse Ox 99.0 F 139 H 19 121/78 97 12/10/19 12:52 12/10/19 12:52 12/10/19 12:52 12/10/19 12:52 12/10/19 12:52 - General General appearance: Appears well, Alert In distress: None - Cardiovascular Rhythm: Tachycardia Heart sounds: S1 appreciated, S2 appreciated Course - Vital Signs Vital signs: Temp Pulse Resp BP Pulse Ox 99 F 124 H 19 121/78 97 12/10/19 13:58 12/10/19 14:01 12/10/19 12:52 12/10/19 12:52 12/10/19 12:52
[2019-12-10 14:52] LABS: ABSOLUTE BASOPHILS # (AUTO) 0.1 10^3/uL (0.0-0.2); ABSOLUTE EOSINOPHILS # (AUTO) 0.1 10^3/uL (0.0-0.6); ABSOLUTE LYMPHOCYTES (AUTO) 2.4 10^3/uL (0.5-4.7); ABSOLUTE MONOCYTES (AUTO) 0.9 10^3/uL (0.1-1.4); ABSOLUTE NEUT (AUTO) 9.1 10^3/uL (1.7-8.2); EOSINOPHILS % (AUTO) 0.5 % (0-6); HEMATOCRIT 46.4 % (37.9-51.0); HEMOGLOBIN 15.9 g/dL (13.5-17.0); LYMPHOCYTES % (AUTO) 18.8 % (13-45); MEAN CORPUSCULAR HEMOGLOBIN 29.5 pg (27.0-33.4); MEAN CORPUSCULAR HGB CONC 34.2 g/dL (32.0-36.0); MEAN CORPUSCULAR VOLUME 86 fl (80-97); MONOCYTES % (AUTO) 7.1 % (3-13); PLATELET COUNT 297 10^3/uL (150-450); RED BLOOD COUNT 5.39 10^6/uL (4.35-5.55); RED CELL DISTRIBUTION WIDTH 13.8 % (11.5-14.0); SEGMENTED NEUTROPHILS % (AUTO) 72.6 % (42-78); TOTAL CELLS COUNTED % (AUTO) 100 %; WHITE BLOOD COUNT 12.5 10^3/uL (4.0-10.5)
--- NOTE | 2019-12-10 14:55 | RADIOLOGY REPORT (SQ) ---
EXAM DESCRIPTION: CHEST SINGLE VIEW IMAGES COMPLETED DATE/TIME: 12/10/2019 2:41 pm REASON FOR STUDY: tachycardia COMPARISON: 11/27/2019 EXAM PARAMETERS: NUMBER OF VIEWS: One view. TECHNIQUE: Single frontal radiographic view of the chest acquired. RADIATION DOSE: NA LIMITATIONS: None. FINDINGS: LUNGS AND PLEURA: Minimal bibasilar atelectasis. No consolidation or effusions. No pneum othorax. MEDIASTINUM AND HILAR STRUCTURES: No masses. Contour normal. HEART AND VASCULAR STRUCTURES: Heart normal in size. Normal vasculature. BONES: No acute findings. HARDWARE: None in the chest. OTHER: No other significant finding. IMPRESSION: Minimal linear atelectasis in the lung bases. TECHNICAL DOCUMENTATION: JOB ID: [id number] 2010 [employer]- All Rights Reserved Reading location - IP/workstation name: [email or web address]
[2019-12-10 15:16] LABS: ALBUMIN 4.7 g/dL (3.5-5.0); ALKALINE PHOSPHATASE 75 U/L (38-126); ANION GAP 8 (5-19); ASPARTATE AMINO TRANSFERASE 24 U/L (17-59); BILIRUBIN,DIRECT 0.1 mg/dL (0.0-0.4); BILIRUBIN,TOTAL 0.6 mg/dL (0.2-1.3); BLOOD UREA NITROGEN 18 mg/dL (7-20); CALCIUM 10.3 mg/dL (8.4-10.2); CARBON DIOXIDE 30 mmol/L (22-30); CHLORIDE 104 mmol/L (98-107); GLUCOSE 71 mg/dL (75-110); POTASSIUM 4.4 mmol/L (3.6-5.0); TOTAL PROTEIN 7.8 g/dL (6.3-8.2)
--- NOTE | 2019-12-10 17:34 | EKG REPORT ---
SEVERITY:- BORDERLINE ECG - MULTIFOCAL ATRIAL TACHYCARDIA : Confirmed by: Veronica Walker MD 10-Dec-2019 17:33:11
--- NOTE | 2019-12-10 18:03 | ER Document Report ---
ED General - General Chief Complaint: Leg Pain Stated Complaint: LEG PAIN Time Seen by Provider: 12/10/19 14:05 Primary Care Provider: [facility] [Provider Group] - Follow up as needed [facility] - Follow up as needed VEENA PAULINO DO [ACTIVE STAFF] - Follow up as needed Mode of Arrival: Ambulatory Notes: Patient is a 49-year-old male who presents emergency department with a chief complaint of leg pain. Patient reports that he was sent here from his employer as he continues to still have lower leg pain on the right. He states he was seen here a few weeks ago and diagnosed with a torn ligament. Patient states he would like a work note and light duty restrictions. Patient reports that his leg pain has improved but still present. It was noted that the patient's heart rate was in the 130s upon arrival. Patient states that intermittently he will get chest pain. He states this is not new. He states that usually with the chest pain he will drink fluids and this will help with his discomfort immediately. He reports this morning he was having a bowel movement and during the act of defecating he developed chest pain. Patient reports immediately he drank cranberry juice which did relieve his symptoms. Patient reports he did also belch which relieved his chest pain. Patient reports he has not had any issues since then. Patient denies palpitations. TRAVEL OUTSIDE OF THE [place] IN LAST 30 DAYS: No - Related Data Allergies/Adverse Reactions: codeine Allergy (Verified 12/02/19 18:45) Home Medications: amlodipine, lisinopril Past Medical History - General Information source: Patient - Social History Smoking Status: Current Every Day Smoker Chew tobacco use (# tins/day): No Frequency of alcohol use: None Drug Abuse: None Lives with: Family Family History: None - Past Medical History Cardiac Medical History: Reports: Hx Hypertension - not on meds Pulmonary Medical History: Reports: None EENT Medical History: Reports: None Neurological Medical History: Reports: None Endocrine Medical History: Reports: None Renal/ Medical History: Reports: None Malignancy Medical History: Reports None GI Medical History: Reports: None Musculoskeletal Medical History: Reports None Skin Medical History: Reports None Psychiatric Medical History: Reports: None Traumatic Medical History: Reports: None Infectious Medical History: Reports: None Past Surgical History: Reports: Hx Appendectomy Review of Systems - Review of Systems Constitutional: No symptoms reported EENT: No symptoms reported Cardiovascular: See HPI Respiratory: No symptoms reported Gastrointestinal: No symptoms reported Genitourinary: No symptoms reported Male Genitourinary: No symptoms reported Musculoskeletal: See HPI Skin: No symptoms reported Hematologic/Lymphatic: No symptoms reported Neurological/Psychological: No symptoms reported Physical Exam - Vital signs Vitals: Temp Pulse Resp BP Pulse Ox 99.0 F 139 H 19 121/78 97 12/10/19 12:52 12/10/19 12:52 12/10/19 12:52 12/10/19 12:52 12/10/19 12:52 Interpretation: Tachycardic - Notes Notes: GENERAL: Well-appearing, well-nourished and in no acute distress. HEAD: Atraumatic, normocephalic. EYES: Pupils equal round and reactive to light, extraocular movements intact, sclera anicteric, conjunctiva are normal. ENT: Nares patent, oropharynx clear without exudates. Moist mucous membranes. NECK: Normal range of motion, supple without lymphadenopathy or JVD. LUNGS: Breath sounds clear to auscultation bilaterally and equal. No wheezes rales or rhonchi. HEART: Tachycardiac regular rate without murmurs, rubs or gallops. ABDOMEN: Soft, round, nontender, normoactive bowel sounds. No guarding, no rebound. No masses appreciated. BACK: No cervical, thoracic, lumbar midline tenderness. No saddle anesthesia, normal distal neurovascular exam. GENITOURINARY: Deferred. EXTREMITIES: Ecchymosis in various stages of healing noted to the right medial calf and right medial malleolus. Slightly tender to palpation. No erythema. Slight edema. Patient has a +2 palpable dorsalis pedis and posterior tibial pulse. NEUROLOGICAL: Cranial nerves II through XII grossly intact. Normal speech, normal gait. PSYCH: Normal mood, normal affect. SKIN: Warm, Dry, normal turgor, no rashes or lesions noted. Course - Re-evaluation Re-evalutation: 12/10/19 19:15 Heart rate is currently 87. This was after 1 L of normal saline. Waiting on a urinalysis result as well as delta troponin. Patient is asymptomatic does not have any chest pain or palpitations. Urine was dark, tea colored, would like to give another liter of fluid but patient states he would like his IV removed and to drink fluids. Patient politely refusing to stay for urinalysis, second troponin. Patient signed out AGAINST MEDICAL ADVICE. Patient nontoxic-appearing. - Vital Signs Vital signs: Temp Pulse Resp BP Pulse Ox 99 F 124 H 21 H 126/80 H 96 12/10/19 13:58 12/10/19 14:01 12/10/19 19:30 12/10/19 19:30 12/10/19 19:59 - Laboratory Result Diagrams: 12/10/19 14:33 12/10/19 14:33 Laboratory results interpreted by me: 12/10/19 12/10/19 14:33 14:33 WBC 12.5 H Absolute Neuts (auto) 9.1 H Creatinine 1.70 H Est GFR ( Amer) 52 L Est GFR (MDRD) Non-Af 43 L Glucose 71 L Calcium 10.3 H Magnesium 2.6 H - Diagnostic Test Radiology reviewed: Reports reviewed Radiology results interpreted by me: 12/10/19 19:38 Chest X-Ray 12/10/19 14:19 IMPRESSION: Minimal linear atelectasis in the lung bases. - EKG Interpretation by Me Additional EKG results interpreted by me: 12/10/19 20:25 Patient's EKG shows a heart rate of 115, NE interval 124, QT 328 and QTc 454.. She has a normal axis deviation. There is not ST segment changes in consecutive leads 12/10/19 20:25 Discharge - Discharge Clinical Impression: Tachycardia, Elevated serum creatinine, Dehydration Condition: Stable Disposition: AGAINST MEDICAL ADVICE Additional Instructions: *Today are seen in the emergency department for a right leg injury and continued pain. Please rest over the next 2 days, use crutches, ice and elevate. You may return to work afterwards with light duty. Unfortunately these type of injuries do take a significant amount of time to heal. If you continue to have problems you do need to follow-up with orthopedics. I provided you with a referral to orthopedics attached to your discharge instructions. It was also found that your heart rate was elevated today. It was found that your kidney function was slightly elevated and you have signs of dehydration. Make sure you are pushing fluids to stay hydrated. I am also referring you to the [facility] as well as [facility] to obtain a primary care. *Today you left AGAINST MEDICAL ADVICE. It was advised that he receive another liter of fluids to help with your heart rate as well as the dehydration, you also did not want your second troponin, which is your cardiac enzyme. Dehydration Dehydration can result from vomiting or diarrhea, fever, or decreased intake of fluids. If severe, hospitalization and intravenous fluids may be required. Most cases are treated at home with fluids by mouth. For the next 24 hours, drink lots of clear fluids. In mild cases, this can be soda pop or sports drinks. For more severe dehydration, the doctor may recommend special fluids such as Pedialyte or Lytren. Try to get three liters (3 quarts) of fluid per day. If vomiting occurs, continue to drink the fluids frequently (every 15 to 20 minutes), but in small amounts (one or two ounces). Depending on the type of dehydration, the doctor may prescribe antinausea medicine or potassium replacements. Call the doctor or return for re-examination if you become progressively weak, vomit repeatedly, or have other new symptoms. Chest Pain of Unclear Cause The exact cause of your chest pain isn't clear. Fortunately, there is no evidence of a dangerous medical condition. Further testing may be required to find the source of the pain. Most often, we find that this pain is coming from the chest wall -- the muscles or rib joints in the chest. But chest pain can come from the lung and lung lining, the esophagus, the heart valves or heart lining, and even the stomach or gallbladder. Rest. Eat lightly until the pain is gone. We may prescribe medicine for pain and inflammation. You should call the physician immediately if the pain radiates to the shoulder, jaw or arms; if you start to run a fever or develop a cough; or if you develop shortness of breath, or other new or alarming symptoms. Forms: Special Work Note Referrals: VEENA PAULINO DO [ACTIVE STAFF] - Follow up as needed [facility] - [facility] needed [facility] - Follow up as needed
[2019-12-10 20:08] VITALS: BP 126/80
[2019-12-10 22:15] LABS: APPEARANCE,URINE SLIGHTLY-CLOUDY; BILIRUBIN,URINE NEGATIVE (NEGATIVE); CALCIUM OXALATE CRYSTALS,URINE RARE /HPF; COLOR,URINE YELLOW; GLUCOSE, URINE NEGATIVE (NEGATIVE); KETONES,URINE NEGATIVE (NEGATIVE); LEUKOCYTE ESTERASE,URINE NEGATIVE (NEGATIVE); NITRITE,URINE NEGATIVE (NEGATIVE); PROTEIN,URINE 30 mg/dL (NEGATIVE); URINE SPECIFIC GRAVITY 1.021; UROBILINOGEN,URINE NEGATIVE mg/dL (<2.0)
== END 2019-12-10 20:08 | disposition left against medical advice (07) ==
LOC: ER 12:46
DX: R00.0 Tachycardia, unspecified (principal); R79.89 Other specified abnormal findings of blood chemistry; E86.0 Dehydration; M79.661 Pain in right lower leg; Z88.6 Allergy status to analgesic agent; F17.200 Nicotine dependence, unspecified, uncomplicated
CPT/HCPCS: 93005; 99284; 96360; 96361; 36415; 83735; 84443; 85025; 80053; 81001; 84484; 71045; 93010; J7030

== ENCOUNTER 2020-06-29 13:40 | Emergency (ER) | payer SELFPAY ==
[2020-06-29] MEDS ORDERED: MORPHINE SULFATE 10 MG/ML INJ IV ONE (14:47)
[2020-06-29] MEDS ORDERED: NORMAL SALINE 1000 ML 1,000 ML IV ONE ×2 (14:47→17:20)
[2020-06-29] MEDS ORDERED: ONDANSETRON HCL INJ/PF 4 MG/2 ML SDV IV ONE (14:47)
[2020-06-29 15:16] LABS: ABSOLUTE BASOPHILS # (AUTO) 0.1 10^3/uL (0.0-0.2); ABSOLUTE EOSINOPHILS # (AUTO) 0.1 10^3/uL (0.0-0.6); ABSOLUTE MONOCYTES (AUTO) 0.6 10^3/uL (0.1-1.4); BASOPHILS % (AUTO) 0.7 % (0-2); EOSINOPHILS % (AUTO) 1.1 % (0-6); HEMATOCRIT 43.8 % (37.9-51.0); HEMOGLOBIN 15.1 g/dL (13.5-17.0); LYMPHOCYTES % (AUTO) 16.7 % (13-45); MEAN CORPUSCULAR HEMOGLOBIN 28.8 pg (27.0-33.4); MEAN CORPUSCULAR HGB CONC 34.5 g/dL (32.0-36.0); MEAN CORPUSCULAR VOLUME 83 fl (80-97); MONOCYTES % (AUTO) 4.7 % (3-13); PLATELET COUNT 271 10^3/uL (150-450); RED BLOOD COUNT 5.25 10^6/uL (4.35-5.55); RED CELL DISTRIBUTION WIDTH 13.9 % (11.5-14.0); SEGMENTED NEUTROPHILS % (AUTO) 76.8 % (42-78); TOTAL CELLS COUNTED % (AUTO) 100 %; WHITE BLOOD COUNT 11.8 10^3/uL (4.0-10.5)
[2020-06-29 15:24] LABS: APPEARANCE,URINE CLOUDY; BILIRUBIN,URINE NEGATIVE (NEGATIVE); COLOR,URINE RED; GLUCOSE, URINE NEGATIVE (NEGATIVE); KETONES,URINE NEGATIVE (NEGATIVE); LEUKOCYTE ESTERASE,URINE NEGATIVE (NEGATIVE); NITRITE,URINE NEGATIVE (NEGATIVE); PROTEIN,URINE >=500 mg/dL (NEGATIVE); URINE SPECIFIC GRAVITY 1.016; UROBILINOGEN,URINE NEGATIVE mg/dL (<2.0)
[2020-06-29 15:28] LABS: ALBUMIN 4.5 g/dL (3.5-5.0); ALKALINE PHOSPHATASE 75 U/L (38-126); ASPARTATE AMINO TRANSFERASE 26 U/L (17-59); BILIRUBIN,DIRECT 0.2 mg/dL (0.0-0.4); BILIRUBIN,TOTAL 0.4 mg/dL (0.2-1.3); BLOOD UREA NITROGEN 12 mg/dL (7-20); CALCIUM 9.4 mg/dL (8.4-10.2); CHLORIDE 104 mmol/L (98-107); GLUCOSE 109 mg/dL (75-110); POTASSIUM 4.2 mmol/L (3.6-5.0); TOTAL PROTEIN 7.2 g/dL (6.3-8.2)
[2020-06-29 15:33] LABS: CARBON DIOXIDE 28 mmol/L (22-30)
[2020-06-29 15:40] LABS: ANION GAP 7 (5-19)
--- NOTE | 2020-06-29 16:32 | RADIOLOGY REPORT (SQ) ---
EXAM DESCRIPTION: CT ABD/PELVIS WITH IV ONLY IMAGES COMPLETED DATE/TIME: 06/29/2020 1:17 pm REASON FOR STUDY: hematuria COMPARISON: None. TECHNIQUE: CT scan of the abdomen and pelvis performed using helical scanning technique with dynamic intravenous contrast injection. No oral contrast. Images reviewed with lung, soft tissue, and bone windows. Reconstructed coronal and sagittal MPR images reviewed. Delayed images for evaluation of the urinary system also acquired. All images stored on PACS. All CT scanners at this facility use dose modulation, iterative reconstruction, and/or weight based d osing when appropriate to reduce radiation dose to as low as reasonably achievable (ALARA). [facility]: Dose Right [facility]: CareDose [facility]: Dose Right [facility]: Teradose 4D [facility]: KissMyAds CONTRAST TYPE AND DOSE: 100 mL Omnipaque 350- low osmolar. RENAL FUNCTION: Creatinine 0.9 RADIATION DOSE: CT Rad equipment meets quality standard of care and radiation dose reduction techniq ues were employed. CTDIvol: NaN mGy. DLP: 0 mGy-cm.. LIMITATIONS: None. FINDINGS: LOWER CHEST: No basilar consolidation or suspicious pulmonary nodule. LIVER: Normal size. No masses. No dilated ducts. SPLEEN: Normal size. No focal lesions. PANCREAS: No masses. No significant calcifications. No adjacent inflammation or peripancreatic fluid collections. Pancreatic duct not dilated. GALLBLADDER: No identified stones by CT criteria. No inflammatory changes to suggest cholecystitis. ADRENAL GLANDS: No significant masses or asymmetry. RIGHT KIDNEY AND URETER: There is a heterogeneous mass off of the anterior right kidney measuring 6.2 x 5.4 x 5.3 cm with relative peripheral heterogeneous enhancement and central cystic changes suspici ous for renal cell carcinoma. No significant calcifications. No hydronephrosis or hydroureter. R enal vasculature appears patent. LEFT KIDNEY AND URETER: No solid masses. No significant calcifications. No hydronephrosis or hydr oureter. AORTA AND VESSELS: No aneurysm. No dissection. Renal arteries, SMA, celiac without stenosis. RETROPERITONEUM: No retroperitoneal adenopathy, hemorrhage or masses. BOWEL AND PERITONEAL CAVITY: No masses or inflammatory changes. No free fluid or peritoneal masses. APPENDIX: Surgically absent. PELVIS: No mass. No free fluid. Normal bladder. ABDOMINAL WALL: No masses. No hernias. BONES: No significant or acute findings. OTHER: No other significant finding. IMPRESSION: 1. Right renal mass measuring up to 6.2 cm suspicious for renal cell carcinoma. 2. No metastatic disease identified. TECHNICAL DOCUMENTATION: JOB ID: [id number] Quality ID # [id number]: Final reports with documentation of one or more dose reduction techniques (e.g., Au tomated exposure control, adjustment of the mA and/or kV according to patient size, use of iterative reconstruction technique) 2010 [employer]- All Rights Reserved Reading location - IP/workstation name: [email or web address]
[2020-06-29] MEDS ORDERED: MORPHINE SULFATE 10 MG/ML INJ IV PRN (17:21)
[2020-06-29 17:32] LABS: PHOSPHORUS 3.2 mg/dL (2.5-4.5)
[2020-06-29] MEDS ORDERED: METOPROLOL TARTRATE PF/INJ 5 MG/5 ML SDV IV ONE (18:25)
[2020-06-29] MEDS ORDERED: HYDROCODONE/ACETAMINOPHEN 5-325 MG (6 TAB/ER DISP) PO PRN (19:05)
[2020-06-29] MEDS ORDERED: HYDROCODONE/ACETAMINOPHEN 5-325 MG TABLET PO ONE (19:05)
--- NOTE | 2020-06-29 19:11 | ER Document Report ---
ED GI/ - General Chief Complaint: Urinary Problem Stated Complaint: BLOOD IN URINE Time Seen by Provider: 06/29/20 14:21 Primary Care Provider: MARQUES MCKINNON MD [NO LOCAL MD] - Follow up as needed TRAVEL OUTSIDE OF THE [place] IN LAST 30 DAYS: No - HPI Notes: 06/29/20 19:12 50-year-old male presents to ED for evaluation of painless hematuria starting earlier today. Reports he had 2 bouts of hematuria at home with clots present. Reports he does have some mild discomfort to the right flank. 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 Patient states that he is currently smoking. Patient denies chest pain or shortness of breath. He reports he is increasingly anxious and believes his heart rate may be elevated due to this. Patient also has a history of hypertension and states that he has not been taking any medications for management. He denies any nausea or vomiting. Denies any fevers or chills. Denies blood present in his stool. En dorses no other complaints at this time. - Related Data Allergies/Adverse Reactions: codeine Allergy (Verified 12/02/19 18:45) Past Medical History - Social History Smoking Status: Current Every Day Smoker Frequency of alcohol use: None Drug Abuse: None Family History: None - Past Medical History Cardiac Medical History: Reports: Hx Hypertension - not on meds Past Surgical History: Reports: Hx Appendectomy Review of Systems - Review of Systems Notes: Constitutional: Negative for fever. HENT: Negative for sore throat. Eyes: Negative for visual changes. Cardiovascular: Negative for chest pain. Respiratory: Negative for shortness of breath. Gastrointestinal: Negative for abdominal pain, vomiting or diarrhea. Genitourinary: Negative for dysuria. + for hematuria Musculoskeletal: Negative for back pain. + for flank pain. Skin: Negative for rash. Neurological: Negative for headaches, weakness or numbness. 10 point ROS negative except as marked above and in HPI. Physical Exam - Vital signs Vitals: Temp Pulse Resp BP Pulse Ox 98.3 F 128 H 16 198/146 H 97 06/29/20 13:49 06/29/20 13:49 06/29/20 13:49 06/29/20 13:49 06/29/20 13:49 General: No acute distress. Alert and oriented x3. Sitting comfortably in a stretcher. Skin: No jaundice, pallor, petechiae, or rashes. Warm and dry. HEENT: Normocephalic, atraumatic. Pupils are equal round reactive to light and accommodation. Extraocular movements are intact. TMs without erythema or bulging. Canals are clear. Nares patent without any discharge. Teeth in good condition. Pharynx without erythema, edema, or exudates. Mucous membranes moist. No tonsillar enlargement. Uvula is midline. Airway is patent. Neck: Supple with no lymphadenopathy. Full range of motion. Heart: Regular rapid rate and rhythm. S1,S2. No murmurs, rubs, or gallops. Lungs: Clear to auscultation bilaterally. No wheezes, rhonchi, rales. Equal chest expansion. No retractions. Abdomen: Soft, nontender to palpation, distended. Positive bowel sounds in all 4 quadrants. No masses. Right CVA tenderness Back: No midline spinal TTP. No paraspinous muscular TTP. Neuro: GCS 15. Moving all extremities without discomfort. Psych: Mood and affect appropriate. Course - Re-evaluation Re-evalutation: 06/29/20 19:14 50-year-old male presents to ED for evaluation of gross hematuria starting earlier today. Patient is a smoker. Patient was evaluated with labs which show no evidence of anemia at this time. Patient's urine is notable for abena blood as well as protein. No evidence of infection. Patient was evaluated with an EKG which shows multifocal atrial tachycardia with a heart rate of 130. No ST segment elevations or depressions are noted. Results were discussed with the patient. Patient was given a dose of Lopressor to decrease his elevated blood pressure as well as his heart rate. He will be switched over to metoprolol for outpatient management. Patient was evaluated with a comprehensive panel which shows no kidney dysfunction. Patient's CT scan of the abdomen pelvis was obt ained which shows a 6.2 mm renal cell carcinoma to the right kidney. I do not have prior imaging for comparison. It appears as though this is new. I did reach out to Dr. Hughes of oncology at this facility who is agreeable with following the patient for outpatient management if he obtains a biopsy with urology. I had a ready placed a call to urology with [facility] and and waiting a call back. Upon speaking with them, I I discussed his case with Dr. Wang. He recommends that patient be seen by either Dr. Yoon or Dr. Mckinnon for evaluation and probable surgical intervention. He does not believe that on Hologic services will be necessary. He states that the patient can be seen in their office on Tuesday or Tuesday and to have him call for follow-up. Patient may otherwise be discharged home with pain medication for further management. I did discuss all of these indications and is plan for follow-up with the patient. He verbalized his understanding and is in agreement with outpatient management at this time. - Vital Signs Vital signs: Temp Pulse Resp BP Pulse Ox 98.3 F 121 H 20 157/101 H 98 06/29/20 14:20 06/29/20 15:11 06/29/20 15:11 06/29/20 15:11 06/29/20 15:11 - Laboratory Results Result Diagrams: 06/29/20 14:43 06/29/20 14:43 Laboratory Results Interpreted: 06/29/20 06/29/20 14:43 14:43 WBC 11.8 H Absolute Neuts (auto) 9.0 H Urine Protein >=500 H Urine Blood MODERATE H Critical Laboratory Results Reviewed: No Critical Results - Radiology Results Critical Radiology Results Reviewed: No Critical Results Discharge - Discharge Clinical Impression: Gross hematuria, Multifocal atrial tachycardia determined by electrocardiography Renal cell carcinoma Qualifiers: Laterality: right Qualified Code(s): C64.1 - Malignant neoplasm of right kidney, except renal pelvis Hypertension Qualifiers: Hypertension type: renovascular hypertension Qualified Code(s): I15.0 - Renovascular hypertension Condition: Stable Disposition: HOME, SELF-CARE Instructions: Hematuria ([facility]) Prescriptions: Hydrocodone/Acetaminophen [[place] 5-325 mg Tablet] 1 tab PO TID #9 tablet Metoclopramide HCl [Reglan 10 mg Tablet] 10 mg PO BID #10 tablet Metoprolol Succinate [Toprol Xl 25 mg Tab.sr] 25 mg PO DAILY #30 tab.sr.24h Forms: Return to Work Referrals: MARQUES MCKINNON MD [NO LOCAL MD] - Follow up as needed
[2020-06-29 19:38] VITALS: BP 140/125
--- NOTE | 2020-06-29 20:34 | EKG REPORT ---
SEVERITY:- ABNORMAL ECG - SINUS OR ECTOPIC ATRIAL TACHYCARDIA PROLONGED QT INTERVAL : Confirmed by: Veronica Walker MD 29-Jun-2020 20:34:07
== END 2020-06-29 19:20 | disposition home or self-care (01) ==
LOC: ER 13:40
DX: R31.0 Gross hematuria (principal); I47.1 Supraventricular tachycardia; C64.1 Malignant neoplasm of right kidney, except renal pelvis; I15.0 Renovascular hypertension; F17.200 Nicotine dependence, unspecified, uncomplicated
CPT/HCPCS: 93005; 96376; 99285; 96361; 96374; 96375; 36415; 87086; 83690; 83735; 84100; 85025; 80053; 81001; 84484; 74177; 93010; J3490; J2270; J2405; J7030